=== PATIENT | male | born 1950 | race Two or more races ===

== ENCOUNTER 2020-07-06 22:18 | Emergency (ER) | payer MEDICARE ==
[~2020-07-06] VITALS: Ht 167.6 cm; Wt 95.3 kg
[2020-07-06 22:30] VITALS: BP 135/80
[2020-07-06] MEDS ORDERED: LIDOCAINE 1%-EPI 1:100,000 20 ML VIAL ONE (22:48)
--- NOTE | 2020-07-06 22:56 | NUR ---
BERYL AT BEDSIDE FOR I&D
[2020-07-06] MEDS ORDERED: LIDOCAINE 1%-EPI 1:100,000 50 ML VIAL IJ ONE (23:00)
[2020-07-06] MEDS ORDERED: SULF1TAB48 PO (23:09)
--- NOTE | 2020-07-06 23:25 | NUR ---
Patient discharged to home in stable condition. Written and verbal after care instructions given. Patient verbalizes understanding of instruction. Pt ambulatory with a steady gait
== END 2020-07-06 23:26 | disposition home or self-care (01) ==
LOC: ER 22:25
DX: L72.3 Sebaceous cyst (principal); L02.213 Cutaneous abscess of chest wall; L08.9 Local infection of the skin and subcutaneous tissue, unspecified; E11.9 Type 2 diabetes mellitus without complications; Z79.899 Other long term (current) drug therapy
CPT/HCPCS: 10060; 99283; J3490 ×2

== ENCOUNTER 2022-03-03 21:28 | Emergency (ER) | payer MEDICARE ==
[~2022-03-03] VITALS: Ht 165.1 cm; Wt 84.4 kg
[~2022-03-03 21:28] MED LIST: SULF1TAB48 PO
[2022-03-03] MEDS ORDERED: MAG HYDROX/AL HYDROX/SIMETH 30 ML UDC PO ONE (22:00)
[2022-03-03] MEDS ORDERED: LIDOCAINE VISCOUS 2% UD 15 ML UDC MM ONE (22:00)
[2022-03-03] MEDS ORDERED: SIMETHICONE 80 MG TAB.CHEW PO ONE (22:00)
[2022-03-03] MEDS ORDERED: MAG HYDROX/AL HYDROX/SIMETH 30 ML UDC ONE (22:03)
[2022-03-03] MEDS ORDERED: SIMETHICONE 80 MG TAB.CHEW ONE (22:04)
[2022-03-03] MEDS ORDERED: LIDOCAINE VISCOUS 2% UD 15 ML UDC ONE (22:04)
[2022-03-03] MEDS ORDERED: POLY17PO4 PO (22:40)
[2022-03-03] MEDS ORDERED: DOCU-141 PO (22:40)
[2022-03-03] MEDS ORDERED: MAGNESIUM CITRATE 296 ML BOTTLE PO ONE (23:00)
--- NOTE | 2022-03-03 23:00 | NUR ---
Patient discharged to home in stable condition. Written and verbal after care instructions given. Patient verbalizes understanding of instruction.
[2022-03-03 23:49] VITALS: BP 140/82
== END 2022-03-03 23:50 | disposition home or self-care (01) ==
LOC: ER 21:29
DX: K59.00 Constipation, unspecified (principal); E11.9 Type 2 diabetes mellitus without complications; Z79.899 Other long term (current) drug therapy
CPT/HCPCS: 74018